=== PATIENT | female | born 1970 | race Caucasian/White ===

== ENCOUNTER 2017-03-23 11:35 | Inpatient (IN) | payer BC ==
[2017-03-23] VITALS (10 sets, daily range): BP systolic 98–119; BP diastolic 52–76; PULSE 58–107; TEMP 98.6–99.2
[~2017-03-23] VITALS: Ht 162.6 cm; Wt 68.2 kg
[2017-03-23] MEDS ORDERED: CORGARD20 MG PO (11:45)
[2017-03-23] MEDS ORDERED: [UNRECOGNIZED DRUG - OTHER] (11:45)
[2017-03-23 12:32] LABS: PH 6 (5-8); URINE APPEARANCE Clear; URINE BACTERIA Rare /hpf; URINE BILIRUBIN Negative (NEGATIVE); URINE BLOOD 1+ (NEGATIVE); URINE COLOR Yellow; URINE GLUCOSE Negative (NEGATIVE); URINE KETONE Negative (NEGATIVE); URINE RBC 0-2 /hpf; URINE UROBILINOGEN Negative (NEGATIVE)
[2017-03-23 12:33] LABS: BASO # 0.1 (0.0-0.2); BASO % 0.3 % (0.0-2.0); EOS # 0.2 (0.0-0.7); EOS % 1.2 % (0-4.0); GRAN # 15.4 (1.4-6.5); HEMATOCRIT 40.4 % (37.0-47.0); HEMOGLOBIN 13.3 g/dl (12.5-16.0); LYMPH # 1.5 (1.2-3.4); LYMPH % 7.9 % (20.0-51.0); MEAN CELL VOLUME 95 fl (80.0-100.0); MEAN CORPUSCULAR HEMOGLOBIN 31 pg (27.0-31.0); MEAN CORPUSCULAR HGB CONC 33 g/dl (33.0-37.0); MEAN PLATELET VOLUME 9.9 fl (7.4-10.4); MONO # 1.3 (0.1-0.6); MONO % 6.9 % (1.7-9.3); PLATELET COUNT 253 K/mm3 (130-400); RED BLOOD COUNT 4.27 M/mm3 (4.10-5.30); REDCELL DISTRIBUTION WIDTH-CV 12.9 % (11.5-14.5); WHITE BLOOD COUNT 18.5 K/mm3 (4.8-10.8)
[2017-03-23 12:44] LABS: ALBUMIN 3.6 gm/dL (3.5-5.0); BILIRUBIN,TOTAL 0.7 mg/dL (0.0-1.0); CALCIUM 8.7 mg/dL (8.4-10.2); CREATININE, serum 0.8 mg/dL (0.52-1.25); POTASSIUM 3.7 mmol/L (3.4-5.0); TOTAL PROTEIN 6.3 gm/dL (6.4-8.2)
[2017-03-23 12:56] LABS: C-REACTIVE PROTEIN 17.1 mg/dL (0.0-0.9)
[2017-03-24] VITALS: BP 98/57; PULSE 79; TEMP 98.2
[2017-03-24 04:00] VITALS: BP 96/53; PULSE 68; TEMP 98.5
[2017-03-24 09:29] VITALS: BP 88/54; PULSE 71; TEMP 97.7
[2017-03-24 14:01] VITALS: BP 94/58; PULSE 66; TEMP 98.6
== END 2017-03-24 17:33 | disposition home or self-care (01) | DRG 343 ==
LOC: COL.ER 11:35 → SURG 13:25
PROVIDERS: Nurse Practitioner; Surgery
PROC: 0DTJ4ZZ Resection of Appendix, Percutaneous Endoscopic Approach (ICD-10-PCS; principal; 2017-03-23 17:00)
DX: K35.80 Unspecified acute appendicitis (principal)
CPT/HCPCS: J1100; J1170; J1800; J1885; J2405; J2543; J2704; J2765; J3010; J7030; J7050; J7120; Q9967

== ENCOUNTER → 2020-03-06 | Outpatient (CLI) | payer BC ==
[~2020-03-06] MED LIST: CORGARD20 MG PO; [UNRECOGNIZED DRUG - OTHER]
== END ==
LOC: MC.RAD 14:48
DX: Z12.31 Encounter for screening mammogram for malignant neoplasm of breast (principal)

== ENCOUNTER → 2021-05-05 | Outpatient (CLI) | payer BC | LOC: MC.RAD 09:36 | DX: Z12.31 Encounter for screening mammogram for malignant neoplasm of breast (principal) ==

== ENCOUNTER → 2022-05-20 | Outpatient (CLI) | payer BC | LOC: MC.RAD 07:35 | DX: N60.02 Solitary cyst of left breast (principal) ==

== ENCOUNTER → 2023-06-02 | Outpatient (CLI) | payer BC | LOC: CANSCHCLI → MC.RAD 07:21 | DX: Z12.31 Encounter for screening mammogram for malignant neoplasm of breast (principal) ==